=== PATIENT | female | born 1995 | race Two or more races ===

== ENCOUNTER 2025-02-20 18:27 | Emergency (ER) | payer MEDICAID, SELFPAY ==
[2025-02-20 18:59] VITALS: BP 108/75; PULSE 94; RESP 18; TEMP 37.2; O2SAT 97; BMI 34.5
--- NOTE | 2025-02-20 19:03 | XR_ITS ---
Examination: CT abdomen and pelvis without contrast. Coronal 3-D reconstructions. Sagittal 2-D reconstructions. Date and time of exam: February 20, 2025, 2157 hours Right lower abdominal pain post 1 week CTDI: vol (mGy): 11 DLP: (mGycm): 608 Technique: Axial images of the abdomen have been obtained, 3 mm slice thickness Intravenous contrast material has not been administered. Low dose protocols were performed. One or more of the following dose reduction techniques were used; automated exposure control, adjustment of the mA and/or KV according to patient size, use of iterative reconstruction technique. Findings: No focal liver or splenic lesions, hepatomegaly 23 cm No gallstones No pancreatic or adrenal mass No renal or ureteral calculi, no hydronephrosis Aorta normal size Normal appendix No bowel obstruction uterus Bladder intact Osseous structures intact IMPRESSION: Normal appendix Hepatomegaly, 23 cm Enlarged uterus
[2025-02-20 19:35] LABS: Basophils # (Auto) 0.1 Thou/mm3 (0.0-0.2); Basophils % (Auto) 1 % (0-2.5); Eosinophils # (Auto) 0.2 Thou/mm3 (0.0-0.5); Eosinophils % (Auto) 3 % (0-10); Hematocrit 35.5 % (36.0-46.0); Hemoglobin 11.4 g/dL (12.0-16.0); Immature Granulocytes Auto 0.03 Thou/mm3 (0.00-0.00); Lymphocytes # (Auto) 2.4 Thou/mm3 (1.0-4.8); Lymphocytes % (Auto) 28 % (10-50); Mean Corpuscular HGB Conc 32.1 g/dl (31.0-37.0); Mean Corpuscular Hemoglobin 29.1 pg (25.0-35.0); Mean Corpuscular Volume 91 fL (80-100); Monocytes # (Auto) 0.5 Thou/mm3 (0.0-0.8); Monocytes % (Auto) 6 % (0-12); Neutrophils # (Auto) 5.3 Thou/mm3 (1.8-7.7); Neutrophils % (Auto) 62 % (37-80); Nucleated Red Blood Cell # 0.00 Thou/mm3 (0.00-0.00); Nucleated Red Blood Cell % 0 /100 WBC (0); Platelet Count 345 Thou/mm3 (140-440); RDW Standard Deviation 45.0 fL (36.4-46.3); Red Blood Count 3.92 Miln/mm3 (4.00-5.20); White Blood Count 8.6 Thou/mm3 (3.6-11.0)
[2025-02-20 19:55] LABS: Alanine Aminotransferase 52 U/L (10-49); Albumin, Serum 4.6 gm/dL (3.5-5.0); Albumin/Globulin Ratio 1.6 (1.2-2.2); Alkaline Phosphatase 107 U/L (46-116); Anion Gap 13 (7-16); Aspartate Amino Transferase 50 U/L (0-34); BUN/Creatinine Ratio 20 Ratio (12-20); Bilirubin,Total 0.2 mg/dL (0.3-1.2); Blood Urea Nitrogen 18 mg/dL (9-23); Calcium 9.5 mg/dL (8.3-10.6); Calcium (Corrected) 9.5 mg/dL (8.5-10.1); Carbon Dioxide 23.2 mMol/L (20.0-31.0); Chloride 106 mMol/L (98-107); Creatinine (Component) 0.9 mg/dL (0.6-1.3); Estimated Creatinine Clearance 106.4 mL/min (>60); Globulin 2.8 gm/dL (2.3-3.5); Glucose 125 mg/dL (74-106); Lipase 40 U/L (12-53); Osmolality,Calculated 286 (275-295); Potassium 3.9 mMol/L (3.4-5.1); Sodium 142 mMol/L (136-145); Total Protein 7.4 gm/dL (5.7-8.2); eGFR > 60 See Note
[2025-02-20] MEDS: MORPHINE SULF INJ 4 MG/ML VIAL 2 MG IVP (20:06)
[2025-02-20] MEDS: SODIUM CHLORIDE 0.9% 1000 ML 1,000 ML 999 ML IV (20:07)
[2025-02-20 20:11] LABS: Collection Type, Urine Clean Catch
[2025-02-20 20:21] LABS: HCG Qualitative,Urine Negative
[2025-02-20 20:24] LABS: Bilirubin,Urine Negative (Negative); Blood,Urine 3+ (Negative); Clarity,Urine Clear (Clear/Hazy); Color,Urine Yellow (Lt Yel-Yel); Glucose, Urine Negative (Negative); Ketones,Urine Negative (Negative); Leukocyte Esterase,Urine Positive (Negative); Nitrite,Urine Negative (Negative); PH,Urine 5.0 (5.0-7.0); Protein,Urine Trace (Neg - Trace); RBC,Urine 180 /hpf (0-3); Specific Gravity,Urine 1.030 (1.001-1.035); Squamous Epithelial Cell,Urine 3 /hpf (0-5); Urobilinogen,Urine Negative mg/dL (0.0-1.0); WBC,Urine 46 /hpf (0-5)
[2025-02-20] MEDS: cefTRIAXone/D5w 1gm IV premix 1 GM/50 ML BAG IV (22:38)
--- NOTE | 2025-02-21 16:35 | EDNOTE_ITS ---
ED Abdominal Pain RME/HPI General Chief Complaint: Abdominal Pain Stated complaint: RLQ PAIN AFTER CARRYING DAUGHTER, 1 WEEK POSTPARTU Time seen by provider: 02/20/25 18:29 Arrival date/time: 02/20/25 18:27 This is a case of 29-year-old female who came in in the emergency room due to right-sided abdominal pain today associated with nausea and vomiting 1 episode nonprojectile no diarrhea no constipation no blood in stool no vaginal bleeding no vaginal discharge no vaginal spotting patient had vaginal delivery 1 week ago with no complication no fever no chills persistence of the symptoms this patient decided to sought consult here in the emergency room Limitations: no limitations Related Data Previous Rx's ?Medication ?Instructions ?Recorded cephalexin 500 mg capsule 500 mg PO QID #40 caps 02/20 Allergies Allergy/AdvReac Type Severity Reaction Status Date / Time NKA* Allergy Uncoded 02/20/25 18:31 Review of Systems Review of Systems Systems Reviewed: All systems reviewed, normal except as documented Past Medical History Social History SMOKING STATUS: Never smoker ED Exam General Limitations: Present no limitations General appearance: Present alert, in no apparent distress and other Head Head exam: Present atraumatic, normocephalic and normal inspection Eye Eye exam: Present normal appearance, PERRL and EOMI ENT ENT exam: Present normal exam, normal oropharynx and mucous membranes moist Neck Neck exam: Present normal inspection, full ROM and trachea midline; Absent tenderness, meningismus, lymphadenopathy or thyromegaly Chest Chest inspection: Present normal inspection and symmetric chest wall rise; Absent tenderness Respiratory Respiratory exam: Present normal lung sounds bilaterally; Absent respiratory distress, wheezes, stridor, accessory muscle use or prolonged expiratory phase Cardiovascular Cardiovascular exam: Present regular rate, normal rhythm and normal heart sounds; Absent bradycardia, tachycardia, irregular rhythm, systolic murmur or diastolic murmur Abdominal Exam Abdominal exam: Present soft, tenderness (Mild tenderness on the right lower quadrant no guarding no rebound no rigidity negative psoas negative straight and negative Rovsing sign McBurney's no Fregoso sign negative CVA tenderness bladder is not distended not tender) and normal bowel sounds; Absent distention, guarding, rebound, rigidity, diminished bowel sounds, hyperactive bowel sounds, hypoactive bowel sounds or organomegaly Extremities Exam Extremities exam: Present normal inspection and full ROM Back Exam Back exam: Present normal inspection and full ROM Neurological Exam Neurological exam: Present alert, oriented X3, CN II-XII intact, normal gait and reflexes normal; Absent motor sensory deficit Psychiatric Psychiatric exam: Present normal affect and normal mood Skin Skin exam: Present warm, dry, intact and normal color Course Quality Measures none Orders Category Date Time Status Insert IV NOW Care 02/20/25 19:[address] abdomen pelvis wo con Stat Exams 02/20/25 19:03 Completed CBC Stat Lab 02/20/25 19:10 Completed Comprehensive Metabolic Panel Stat Lab 02/20/25 19:10 Completed HCG Qualitative,Urine Stat Lab 02/20/25 19:50 Completed Lipase Stat Lab 02/20/25 19:10 Completed Urinalysis Stat Lab 02/20/25 19:50 Completed Morphine* Inj Med 02/20/25 19:04 Discontinued 2 mg IVP X1 ONE Sodium Chloride 0.9% 1000 ml [Ns] 1,000 ml Med 02/20/25 19:04 Discontinued IV 999 mls/hr cefTRIAXone/D5w 1gm IV premix [Rocephin/D5w 1gm IV Med 02/20/25 22:31 Discontinued premix] 1 gm in 50 ml IV X1 Vital Signs Vital signs: Vital Signs Temperature 98.9 F 02/20/25 18:59 Pulse Rate 94 02/20/25 18:59 Respiratory Rate 18 02/20/25 18:59 Blood Pressure 108/75 02/20/25 18:59 Pulse Oximetry (%) 97 02/20/25 18:59 Oxygen Delivery Method Room Air 02/20/25 18:59 Oxygen saturation is 97% in room air Abdominal Pain MDM MDM Narrative MDM Narrative:: This is a case of 29-year-old female who came in in the emergency room due to right-sided abdominal pain today associated with nausea and vomiting 1 episode nonprojectile no diarrhea no constipation no blood in stool no vaginal bleeding no vaginal discharge no vaginal spotting patient had vaginal delivery 1 week ago with no complication no fever no chills persistence of the symptoms this patient decided to sought consult here in the emergency room physical examination patient is awake alert oriented not in distress nontoxic looking well-hydrated well-nourished excellent skin turgor lungs sound is clear no crackles no rales no retraction no stridor heart normal rate regular rhythm no murmur patient vital signs stable BP stable not tachycardic not tachypneic afebrile and nonhypoxic abdominal exam noted very mild tenderness on the right lower quadrant but no guarding no rebound no rigidity negative psoas negative straight or negative Rovsing's no McBurney sign Fregoso sign negative CVA tenderness bladder is not distended not tender the rest of the physical examination and neurological exam is normal and unremarkable blood test showed no leukocytosis no anemia kidney and liver function is normal no electrolyte imbalance lipase is normal urinalysis showed WBC and urine suggestive of urinary tract infection CT scan of the abdomen pelvis showed normal appendix hepatomegaly and was prior to uterus based on my physical examination and history patient symptoms suggestive of urinary tract infection no signs and symptoms of dehydration sepsis or bacteremia patien was discharged with cephalexin which is safe for patient was advised to take Tylenol as needed for pain and hydration patient will follow-up with her OB margarine maker for follow-up for any worsening symptoms or any emergent concern return precaution in the ER was advised hydration is also advised Patient was discharged with comfortable condition walking with stable gait. Patient verbalized no further complains explained diagnosis and answered patient question. Patient is comfortable with the proposed management plan including the need to follow up with his/her primary care physician and any specialist if applicable Discussed patient for any urgent condition or worsening sx, He/She needed to go to emergency room immediately or call 911. Patient acknowledge the responsibility to follow up as instructed and to monitor her/his symptoms. For any persistence of the symptoms for more than 3-5 days return precaution advised. Discussed the result of the test and was given printed discharge instruction Patient data External records reviewed:: [facility] previous records Clinical information provided by:: patient Social determinants that could affect healthcare access:: none Patient has the following chronic illnesses:: None How is presenting disease/condition affected by chronic disease/condition?: no chronic disease Evaluation data The following diagnostics were reviewed and interpreted by me:: lab results and radiology exam(s) Lab and/or radiology exams considered but not ordered:: Reviewed Interpretation Summary: Reviewed Medications / Prescriptions Medications or Prescriptions considered but not ordered:: Given Medication administrations:: Medication Administration History Discontinued Medications Sodium Chloride (Ns) 1,000 mls @ 999 mls/hr IV .Q1H1M ONE Stop: 02/20/25 20:04 Last Infusion: 02/20/25 20:40 Dose: Infused Documented By: Admin: 02/20/25 20:07 Dose: 999 mls/hr Documented By: BD Ceftriaxone Sodium/Dextrose (Rocephin/D5w 1gm Iv Premix) 1 gm in 50 mls @ 100 mls/hr IV X1 ONE Stop: 02/20/25 23:00 Last Infusion: 02/20/25 23:08 Dose: Infused Documented By: Admin: 02/20/25 22:38 Dose: 100 mls/hr Documented By: BD Morphine Sulfate (Morphine Sulf Inj 4 Mg/Ml Vial) 2 mg IVP X1 ONE Stop: 02/20/25 19:05 Last Admin: 02/20/25 20:06 Dose: 2 mg Documented By: BD Given Consultations Consultation(s) initiated? (list below): No Diagnosis Differential diagnosis abdominal pain: abdominal pain, acute appendicitis, calculus of kidney, constipation and diverticulitis Most likely diagnosis given after review of the tests above:: Urinary tract infection Admission Indicated Admission indicated?: not indicated Explain why admission is indicated or not indicated:: Not indicated Admission Request Was there a request for admission?: No Admission Attestation Admission request attestation: Not indicated Disposition Plan Disposition Plan: Discharge Discharge Attestation Discharge Attestation: The patient and all family members were given an opportunity to ask questions and understood the discharge instructions. Discharge instructions specifically effects, indications for sooner follow up or return to the emergency department, and the expected course of current diagnosis. Patient condition: Stable Discharge Plan Plan Patient Disposition: HOME (Self Care) Patient condition on transfer: Stable Prescriptions/Referrals Prescriptions/Med Rec: New cephalexin 500 mg capsule 500 mg PO QID Qty: 40 0RF Referrals: Julita Warner NP [Primary Care Provider] - In 1 week Problem List Clinical Impression: Abdominal pain, Urinary tract infection, Hepatomegaly Patient/Caregiver Discharge Instructions Education Materials: Tests for Liver Disease, Abdominal Pain, Urinary Tract Infections in Women Additional Instructions: Follow-up with your primary care physician in 2 days for reevaluation worsening persistent or any emergent condition call 911 or go to the nearest emergency room take your medication as directed finish the course of antibiotic increase water intake keep hydrated Pedialyte Gatorade for every bouts of vomiting and or diarrhea follow-up with your OB margarine maker for follow-up follow-up with your primary care physician to be referred to stogy maker for further evaluation and treatment of hepatomegaly Print Language: Sen[place]alese Stand Alone Forms: Savi Romero Info., Patient Portal Info Letter PA/[employer] Supervising Physician PA/[employer] Supervising Physician: Dr. Barger
== END 2025-02-20 23:17 | disposition home or self-care (01) ==
PROVIDERS: Nurse Practitioner Family; Emergency Provider Emergency Medicine; PCP Registered Nurse
DX: N39.0 Urinary tract infection, site not specified (principal)
CPT/HCPCS: 36415; 74176; 80053; 81001; 81025; 83690; 85025; 96361; 96365; 96375; 99283; J0696; J2270; J7030